=== PATIENT | female | born 1980 | race Caucasian/White ===

== ENCOUNTER 2016-10-29 13:49 | Emergency (ER) | payer OTHER ==
[~2016-10-29] VITALS: Ht 162.6 cm; Wt 106.0 kg
[2016-10-29 13:52] VITALS: Ht 162.6 cm; Wt 106.0 kg
[2016-10-29] MEDS ORDERED: AZIT250T94 PO (19:03)
[2016-10-29] MEDS ORDERED: GUAI120S26 PO (19:03)
[2016-10-29] MEDS ORDERED: IBUP-1542 PO (19:03)
[2016-10-29 19:18] VITALS: BP 162/97; PULSE 65; RESP 18; TEMP 98.9
--- NOTE | 2016-10-29 19:37 | ERD ---
ER Documentation Chief Complaint Date/Time DATE: 10/29/16 TIME: 19:33 Chief Complaint PRODUCTIVE COUGH X 1 WEEK HPI 36-year-old female with no significant past medical history presents to the ED complaining of a productive cough that occurred 2 days ago. States that she tried taking DayQuil, NyQuil, Chloraseptic spray with slight relief of her symptoms. Denies any fever, chills chest pain, shortness of breath, abdominal pain, nausea, vomiting. Denies any sick contacts. Denies any dyspnea on exertion, pleuritic chest pain. Denies any recent travel. Denies any leg swelling. Denies taking control. ROS All systems reviewed and are negative except as per history of present illness. Medications Home Meds Active Scripts Ibuprofen* (Motrin*) 600 Mg Tab, 600 MG PO Q6, #30 TAB Prov:DISHA GRANADO PA-C 10/29/16 Uhjdzoyeydy-R-Mcnvrmzbsf Hb* (Guaifenesin* DM Syrup) 120 Ml Syrup, 10 ML PO Q4H Y for COUGH, #120 ML Prov:DISHA GRANADO PA-C 10/29/16 Azithromycin* (Zithromax*) 250 Mg Tablet, 250 MG PO .ZPACK DIRECTED, #6 TAB TAKE 500 MG (2 TABS) THE FIRST DAY THEN 250 MG (1 TAB) DAYS 2-5 Prov:DISHA GRANADO PA-C 10/29/16 Allergies Allergies: Coded Allergies: No Known Allergy (Unverified , 10/30/16) PMhx/Soc Medical and Surgical Hx: pt denies Medical Hx, pt denies Surgical Hx Hx Alcohol Use: No Hx Substance Use: No Hx Tobacco Use: Yes (1/2 PACK/DAY) Smoking Status: Current every day smoker Physical Exam Vitals Vital Signs Date Time Temp Pulse Resp B/P Pulse Ox O2 Delivery O2 Flow Rate FiO2 10/29/16 19:18 98.9 65 18 162/97 98 Room Air 10/29/16 13:52 98.9 105 18 171/95 98 Physical Exam Const: [id number]-zxy-xfkuyovgw, well-nourished. In no acute distress. Head: Atraumatic, normocephalic Eyes: Normal Conjunctiva without injection. No purulent discharge. PERRL. EOMI ENT: Normal external ear. Ear canal without erythema. Tympanic membrane pearly gomez without effusion or bulging. Nasal canal clear with normal turbinates. Moist oropharynx without tonsillar exudates. Non-erythematous pharynx. Uvula midline. No drooling. No trismus. Neck: Full range of motion. No meningismus. No cervical lymphadenopathy. Resp: Clear to auscultation bilaterally. No wheezing, rhonchi, rales, or crackles. No accessory muscle use. No retractions. Cardio: Regular rate and rhythm. No murmurs, rubs or gallops. Abd: Soft, non tender, non distended. Normal bowel sounds. No palpable masses. No rebound tenderness. No guarding. Skin: No petechiae or rashes Back: No midline tenderness. No CVA tenderness. Ext: No cyanosis, or edema. Neur: Awake and alert. Psych: Normal Mood and Affect Procedures/MDM 36-year-old female with no significant past medical history presents to the ED complaining of a productive cough and sore throat that occurred 2 days ago. Patient is afebrile and nontoxic-appearing. Patient's blood pressure was noted to be 171/95. Patient was instructed to follow up with PCP for further evaluation of HTN. Denies any blurred vision, headache, chest pain, dizziness, numbness or tingling, weakness. Low suspicion for end organ damage. This patient presents to the ED with symptoms consistent with a viral acute upper respiratory infection. Patient's physical exam include lungs which were clear to auscultation and a normal pulse oximetry. There is a low suspicion for pneumonia, pneumothorax, pulmonary embolism, epiglottitis, otitis media, otitis externa, viral/strep pharyngitis, sinusitis, peritonsillar abscess, mastoiditis , retropharyngeal abscess, meningitis, sepsis, acute abdomen or other emergent conditions. Discharge medications: Zithromax (if symptoms do not improve with symptomatic relief), Guaifenesin DM, Ibuprofen Patient was instructed to return to the ED for any new or worsening symptoms. They should otherwise follow up with the primary care provider within 1-2 days. The patient's questions were answered at the time of discharge. Patient understood and agreed with discharge management. Departure Diagnosis: Primary Impression: URI (upper respiratory infection) URI type: unspecified URI Qualified Code: J06.9 - Upper respiratory tract infection, unspecified type Condition: Stable Patient Instructions: Uri, Viral, No Abx (Adult) Referrals: [facility] YOU HAVE RECEIVED A MEDICAL SCREENING EXAM AND THE RESULTS INDICATE THAT YOU DO NOT HAVE A CONDITION THAT REQUIRES URGENT TREATMENT IN THE EMERGENCY DEPARTMENT. FURTHER EVALUATION AND TREATMENT OF YOUR CONDITION CAN WAIT UNTIL YOU ARE SEEN IN YOUR DOCTORS OFFICE WITHIN THE NEXT 1-2 DAYS. IT IS YOUR RESPONSIBILITY TO MAKE AN APPOINTMENT FOR FOLOW-UP CARE. IF YOU HAVE A PRIMARY DOCTOR --you should call your primary doctor and schedule an appointment IF YOU DO NOT HAVE A PRIMARY DOCTOR YOU CAN CALL OUR PHYSICIAN REFERRAL HOTLINE AT IF YOU CAN NOT AFFORD TO SEE A PHYSICIAN YOU CAN CHOSE FROM THE FOLLOWING [facility] [address] [facility] [address] [facility] [address] [facility] [address] [facility] [address] [facility]. [facility] [address] [facility] [facility] YOU HAVE RECEIVED A MEDICAL SCREENING EXAM AND THE RESULTS INDICATE THAT YOU DO NOT HAVE A CONDITION THAT REQUIRES URGENT TREATMENT IN THE EMERGENCY DEPARTMENT. FURTHER EVALUATION AND TREATMENT OF YOUR CONDITION CAN WAIT UNTIL YOU ARE SEEN IN YOUR DOCTORS OFFICE WITHIN THE NEXT 1-2 DAYS. IT IS YOUR RESPONSIBILITY TO MAKE AN APPOINTMENT FOR FOLOW-UP CARE. IF YOU HAVE A PRIMARY DOCTOR --you should call your primary doctor and schedule and appointment IF YOU DO NOT HAVE A PRIMARY DOCTOR YOU CAN CALL OUR PHYSICIAN REFERRAL HOTLINE AT . IF YOU CAN NOT AFFORD TO SEE A PHYSICIAN YOU CAN CHOSE FROM THE FOLLOWING [facility]: [facility] [address] [place] [address] [facility] [address] [place] [address] [facility] [address] [place] [address] [facility] URGENT C[facility]/SPECIALTIES Additional Instructions: FOLLOW UP WITH YOUR PRIMARY CARE PHYSICIAN TOMORROW. Return to this facility if you are not improving as expected. DISHA GRANADO PA-C Oct 29, 2016 19:36
== END 2016-10-29 19:20 | disposition home or self-care (01) ==
LOC: FTE 13:49 → MERGE 13:49 → FTE 19:20
DX: J06.9 Acute upper respiratory infection, unspecified (principal); F17.210 Nicotine dependence, cigarettes, uncomplicated
CPT/HCPCS: 99283

== ENCOUNTER 2017-02-19 16:13 | Emergency (ER) | payer OTHER ==
[~2017-02-19] VITALS: Ht 165.1 cm; Wt 108.0 kg
[~2017-02-19 16:13] MED LIST: AZIT250T94 PO; GUAI120S26 PO; IBUP-1542 PO
[2017-02-19 16:16] VITALS: Ht 165.1 cm; Wt 108.0 kg
[2017-02-19] MEDS ORDERED: traMADol 50 MG TAB PO ONE (17:30)
[2017-02-19 17:56] LABS: URINE BLOOD (Dip) POC Negative (NEGATIVE)
--- NOTE | 2017-02-19 18:52 | RADRPT ---
PROCEDURE: CT brain without contrast CLINICAL INDICATION: Headaches TECHNIQUE: A CT of the brain was performed utilizing axial sections from the skull base through th e vertex without contrast. Sagittal and coronal images were also reformatted. The exam CTDIvol = 44. 68 mGy and DLP = 720.23 mGy-cm. COMPARISON: None available FINDINGS: No acute intracranial hemorrhage is identified. There is no mass effect or midline shift. No extra -axial fluid collection is seen. The ventricles and sulci are within normal limits for size and con figuration. The density of the brain is within normal limits. A linear area of hypodensity within t he left periventricular white matter adjacent to the frontal horn may reflect the sequela of remote trauma or lacunar infarct (series 601 image 32) Garcia-white differentiation is preserved. The osseous structures are unremarkable. The mastoid air cells and visualized paranasal sinuses are clear. RPTAT:HJJR IMPRESSION: 1. No evidence of acute intracranial abnormality or mass effect. 2. Subtle linear area of low attenuation within the left frontal lobe periventricular white matter may be the sequela of prior lacunar infarct or injury. Physician Nathalie Date Time Electronically viewed and signed by Physician Nathalie on 02/19/2017 18:52 JR/
[2017-02-19] MEDS ORDERED: FIORICET PO (18:55)
[2017-02-19] MEDS ORDERED: CLOT24CR4 TOP (19:03)
[2017-02-19] MEDS ORDERED: KENC1 TOP (19:03)
--- NOTE | 2017-02-19 19:08 | ERD ---
ER Documentation Chief Complaint Date/Time DATE: 02/19/17 TIME: 19:06 Chief Complaint headcahe x 2 weeks h/o migraine HPI This 28 year female complains of worsening headache over last 2 weeks. She describes it intermittently radiating from the back to the front bilaterally. It does not change location. She denies any photophobia, vomiting, visual changes patient has a history of trauma. Patient is doing about the worsening headaches. Patient has additional complaints of rash on the right foot which is itchy and scaly. She denies any weakness or bowel or bladder incontinence. She has not been diagnosed with migraines but thinks she may have migraines. ROS All systems reviewed and are negative except as per history of present illness. Medications Home Meds Active Scripts Clotrimazole* (Lotrimin* AF) 1% - 24 Gm Cream.gm., 1 APPLIC TOP BID for 10 Days , TUB Prov:ARJUN WANG MD 02/19/17 Triamcinolone Acetonide (Triamcinolone Acetonide) 0.1% - 15 Gm Cream.gm., 1 APPLIC TOP TID for 7 Days, #1 TUB Prov:ARJUN WANG MD 02/19/17 Acetamin/Butalbital/Caffeine* (Fioricet*) [id number] Tab, 1 TAB PO Q6H Y for PAIN, #15 TAB Prov:ARJUN WANG MD 02/19/17 Ibuprofen* (Motrin*) 600 Mg Tab, 600 MG PO Q6, #30 TAB Prov:DISHA GRANADO PA-C 10/29/16 Iabvfroxfsb-H-Faiatfcelq Hb* (Guaifenesin* DM Syrup) 120 Ml Syrup, 10 ML PO Q4H Y for COUGH, #120 ML Prov:DISHA GRANADO PA-C 10/29/16 Azithromycin* (Zithromax*) 250 Mg Tablet, 250 MG PO .ZPACK DIRECTED, #6 TAB TAKE 500 MG (2 TABS) THE FIRST DAY THEN 250 MG (1 TAB) DAYS 2-5 Prov:DISHA GRANADO PA-C 10/29/16 Allergies Allergies: Coded Allergies: prochlorperazine (Verified Allergy, Unknown, 02/19/17) irritation and agitated PMhx/Soc Medical and Surgical Hx: pt denies Medical Hx, pt denies Surgical Hx Hx Alcohol Use: No Hx Substance Use: No Hx Tobacco Use: Yes (1/2 PACK/DAY) Smoking Status: Current every day smoker Physical Exam Vitals Vital Signs Date Time Temp Pulse Resp B/P Pulse Ox O2 Delivery O2 Flow Rate FiO2 02/19/17 16:16 98.4 98 18 155/90 100 Physical Exam Const: [] Alert, [id number]. Head: Atraumatic Eyes: Normal Conjunctiva ENT: Normal External Ears, Nose and Mouth. Neck: Full range of motion..~ No meningismus. Resp: Clear to auscultation bilaterally Cardio: Regular rate and rhythm, no murmurs Abd: Soft, non tender, non distended. Normal bowel sounds Skin: No petechiae or rashes Back: No midline or flank tenderness Ext: No cyanosis, or edema Neur: Awake and alert. Normal gait. Cranial nerves II through XII grossly intact. Psych: Normal Mood and Affect Results 24 hrs Laboratory Tests Test 02/19/17 17:57 Bedside Urine pH (LAB) 5.5 Bedside Urine Protein (LAB) Negative Bedside Urine Glucose (UA) Negative Bedside Urine Ketones (LAB) Negative Bedside Urine Blood Negative Bedside Urine Nitrite (LAB) Negative Bedside Urine Leukocyte Esterase (L Negative Current Medications Medications (Trade) Dose Ordered Sig/Madhuri Route PRN Reason Start Time Stop Time Status Last Admin Dose Admin Tramadol HCl (Ultram) 50 mg ONCE ONCE PO 02/19/17 17:30 02/19/17 17:31 DC 02/19/17 17:50 Procedures/MDM HCG is negative. Urine is negative for leukocytes, nitrites, blood, glucose. Patient's blood pressure is elevated mildly at triage. Given uncertain cause of headache and patient concern a CT brain was performed which showed possible signs of old lacunar infarct infarct otherwise no acute findings. Patient is given tramadol 50 mg by mouth for pain. Patient presents with headache of uncertain etiology and signs and symptoms to suggest a tension headache is no signs or symptoms of meningitis, central lesions, mass-effect, neurologic deficit. Patient has a rash which appears to be athlete's foot on her foot we treated with Lotrimin and triamcinolone. Patient was treated with Fioricet at home and instructed to follow-up with primary doctor this week and follow-up for blood pressure monitoring and treatment as necessary patient should otherwise return to the ER for new or worsening symptoms. Departure Diagnosis: Primary Impression: Dermatitis Additional Impression: Headache Headache type: unspecified Headache chronicity pattern: unspecified pattern Intractability: not intractable Qualified Code: R51 - Nonintractable headache, unspecified chronicity pattern, unspecified headache type Condition: Stable Patient Instructions: Athlete'S Foot, Headache, Unspecified Referrals: [facility] YOU HAVE RECEIVED A MEDICAL SCREENING EXAM AND THE RESULTS INDICATE THAT YOU DO NOT HAVE A CONDITION THAT REQUIRES URGENT TREATMENT IN THE EMERGENCY DEPARTMENT. FURTHER EVALUATION AND TREATMENT OF YOUR CONDITION CAN WAIT UNTIL YOU ARE SEEN IN YOUR DOCTORS OFFICE WITHIN THE NEXT 1-2 DAYS. IT IS YOUR RESPONSIBILITY TO MAKE AN APPOINTMENT FOR FOLOW-UP CARE. IF YOU HAVE A PRIMARY DOCTOR --you should call your primary doctor and schedule an appointment IF YOU DO NOT HAVE A PRIMARY DOCTOR YOU CAN CALL OUR PHYSICIAN REFERRAL HOTLINE AT IF YOU CAN NOT AFFORD TO SEE A PHYSICIAN YOU CAN CHOSE FROM THE FOLLOWING [facility] CLINICS [facility] [address] [facility] [address] [facility] [address] [facility] [address] [facility] [address] [facility]. [facility]. [address] Additional Instructions: CT shows no acute reason for headache. See primary doctor for follow-up. Recommend further observation of high blood pressure for recheck with primary doctor. Recheck otherwise for new or worsening symptoms. ARJUN WANG MD Feb 19, 2017 19:08
[2017-02-19 19:27] VITALS: BP 132/78; PULSE 82; RESP 18; TEMP 98.4
== END 2017-02-19 19:28 | disposition home or self-care (01) ==
LOC: FTE 16:13
DX: L30.9 Dermatitis, unspecified (principal); F17.210 Nicotine dependence, cigarettes, uncomplicated
CPT/HCPCS: 70450; 81003; Z7502; Z7610